=== PATIENT | male | born 1965 | race Caucasian/White ===

== ENCOUNTER 2016-06-03 08:03 | Day surgery (SDC) | payer OTHER ==
[~2016-06-03] VITALS: Ht 177.8 cm; Wt 83.9 kg
[~2016-06-03 08:03] MED LIST: ACID REDUCER 1150 MG PO; ASPIR 8181 M1 PO; ASPIR-LOW81 MG PO; GLUCOPHAGE500 MG PO; LAMICTAL150 M1 PO; LAMOTRIGINE100 MG PO; LEXAPRO10 MG PO; LISINOPRIL30 MG PO; RANITIDINE HCL150 MG PO; ZESTRIL30 MG PO
[2016-06-03 08:38] VITALS: BP 111/69
[2016-06-03 08:44] LABS: POINT-OF-CARE METER ID UU14174212
[2016-06-03 09:35] LABS: AMPHETAMINES QUANT VALUE 0 NG/ML; BARBITUATES QUANT VALUE 0 NG/ML; BENZODIAZEPINES QUANT VALUE 0 NG/ML; BENZODIAZEPINES, URINE SCREEN Negative (200 ng/mL); OPIATES QUANTITATIVE VALUE 0 NG/ML; PHENCYCLIDINE QUANT VALUE 0 NG/ML
== END 2016-06-03 10:43 | disposition home or self-care (01) ==
LOC: SDC 08:03
PROVIDERS: Surgery
PROC: 0YJ Anatomical Regions, Lower Extremities, Inspection (ICD-10-PCS; principal; 2016-06-03)
DX: K40.90 Unilateral inguinal hernia, without obstruction or gangrene, not specified as recurrent (principal); Z53.09 Procedure and treatment not carried out because of other contraindication; F14.10 Cocaine abuse, uncomplicated
CPT/HCPCS: 80306 90; 82948; J0690

== ENCOUNTER 2016-07-20 05:43 | Day surgery (SDC) | payer OTHER ==
[~2016-07-20] VITALS: Ht 177.8 cm; Wt 81.6 kg
[~2016-07-20 05:43] MED LIST changes: +LAMICTAL100 MG PO
[2016-07-20 06:34] VITALS: BP 111/67
[2016-07-20 06:37] LABS: POINT-OF-CARE METER ID UU14174212
[2016-07-20 07:52] LABS: AMPHETAMINES QUANT VALUE 0 NG/ML; BARBITUATES QUANT VALUE 0 NG/ML; BENZODIAZEPINES QUANT VALUE 0 NG/ML; BENZODIAZEPINES, URINE SCREEN Negative (200 ng/mL); OPIATES QUANTITATIVE VALUE 0 NG/ML; PHENCYCLIDINE QUANT VALUE 0 NG/ML
[2016-07-20] MEDS ORDERED: PERCOCET 5/31 TABLET PO (08:35)
[2016-07-20 08:50] LABS: POINT-OF-CARE METER ID UU13113675
[2016-07-20 09:45] VITALS: BP 128/79
[2016-07-20 10:45] VITALS: BP 122/76
== END 2016-07-20 10:58 | disposition home or self-care (01) ==
LOC: SDC 05:43
PROVIDERS: Surgery
PROC: 0YU60JZ Supplement Left Inguinal Region with Synthetic Substitute, Open Approach (ICD-10-PCS; principal; 2016-07-20)
DX: K40.90 Unilateral inguinal hernia, without obstruction or gangrene, not specified as recurrent (principal); I10 Essential (primary) hypertension; E11.9 Type 2 diabetes mellitus without complications; F17.210 Nicotine dependence, cigarettes, uncomplicated; Z79.84 Long term (current) use of oral hypoglycemic drugs; Z79.82 Long term (current) use of aspirin; Z79.899 Other long term (current) drug therapy; Z83.3 Family history of diabetes mellitus; Z82.49 Family history of ischemic heart disease and other diseases of the circulatory system; Z82.5 Family history of asthma and other chronic lower respiratory diseases
CPT/HCPCS: 80306 90; 82948; C1781; J0690; J3010

== ENCOUNTER 2016-09-28 21:12 | Emergency (ER) | payer OTHER ==
[~2016-09-28] VITALS: Ht 177.8 cm; Wt 77.1 kg
[~2016-09-28 21:12] MED LIST changes: +PERCOCET 5/31 TABLET PO
[2016-09-28] MEDS ORDERED: LISINOPRIL30 MG PO (21:30)
[2016-09-28] MEDS ORDERED: LAMOTRIGINE100 MG PO (21:31)
[2016-09-28] MEDS ORDERED: METFORMIN HCL500 MG PO (21:31)
[2016-09-28] MEDS ORDERED: PEPCID20 MG PO (22:33)
[2016-09-28] MEDS ORDERED: PREDNISONE20 MG PO (22:33)
[2016-09-28 23:51] VITALS: BP 122/84
== END 2016-09-28 23:51 | disposition home or self-care (01) ==
LOC: EME 21:12
DX: T63.441A Toxic effect of venom of bees, accidental (unintentional), initial encounter (principal); E11.9 Type 2 diabetes mellitus without complications; Z79.84 Long term (current) use of oral hypoglycemic drugs
CPT/HCPCS: 99281; 99284; J7512

== ENCOUNTER 2017-03-15 07:12 | Emergency (ER) | payer OTHER ==
[~2017-03-15] VITALS: Ht 177.8 cm; Wt 76.1 kg
[~2017-03-15 07:12] MED LIST changes: +METFORMIN HCL500 MG PO; +PEPCID20 MG PO; +PREDNISONE20 MG PO
[2017-03-15 09:32] LABS: HEMATOCRIT 41.9 % (38.0-50.0); HEMOGLOBIN 14.5 G/DL (12.5-16.6); MCH 33.3 PG (29.0-34.0); MCHC 34.6 G/DL (30.0-36.0); MCV 96.1 FL (86-99); PLATELET COUNT 303 K/uL (156-360); RBC DIS.WIDTH-CV 11.9 % (11.8-14.6); RBC DIS.WIDTH-SD 41.9 % (39-53); RED BLOOD COUNT 4.36 M/uL (4.00-5.50); WHITE BLOOD COUNT 17.3 K/uL (4.1-10.2)
[2017-03-15 09:48] LABS: ALBUMIN 3.7 g/dL (3.2-4.8); CHLORIDE 96 mEq/L (99-109); POTASSIUM 4.2 mEq/L (3.7-5.4); SODIUM 133 mEq/L (136-147)
[2017-03-15 09:50] LABS: GLUCOSE 199 mg/dL (70-99); TOTAL PROTEIN 7.5 g/dL (6.4-8.3)
[2017-03-15 09:52] LABS: TOTAL BILIRUBIN 0.3 mg/dL (0.0-1.0)
[2017-03-15 09:54] LABS: ALKALINE PHOSPHATASE 81 IU/L (3-129); CREATININE 1.9 mg/dL (0.6-1.3); GFR ESTIMATE (CALCULATED) 40 mL/min/ (58.99-99999)
[2017-03-15 09:55] LABS: UREA NITROGEN (BUN) 22 mg/dL (9-23)
[2017-03-15 09:56] LABS: AST (GOT) 20 IU/L (2-34)
[2017-03-15 09:57] LABS: ALT (GPT) 18 IU/L (3-49); LIPASE 10 U/L (1.0-51.0)
[2017-03-15] MEDS ORDERED: ZOFRAN ODT4 MG PO (10:05)
[2017-03-15] MEDS ORDERED: AUGMENTIN875 MG PO (10:05)
[2017-03-15 10:22] VITALS: BP 128/79
== END 2017-03-15 10:22 | disposition home or self-care (01) ==
LOC: EME 07:12
PROVIDERS: Physician Assistant
DX: J02.9 Acute pharyngitis, unspecified (principal); H10.9 Unspecified conjunctivitis; R11.2 Nausea with vomiting, unspecified; F17.200 Nicotine dependence, unspecified, uncomplicated; Z87.442 Personal history of urinary calculi
CPT/HCPCS: 80053; 83690; 85027; 99281; 99285; J0295; J1885; J2405; J7030; J7050

== ENCOUNTER 2017-06-24 18:19 | Emergency (ER) | payer OTHER ==
[~2017-06-24] VITALS: Ht 177.8 cm; Wt 80.0 kg
[~2017-06-24 18:19] MED LIST changes: +AUGMENTIN875 MG PO; +ZOFRAN ODT4 MG PO
[2017-06-24] MEDS ORDERED: MOTRIN800 MG PO (19:37)
[2017-06-24 19:54] VITALS: BP 153/90
== END 2017-06-24 19:55 | disposition home or self-care (01) ==
LOC: TRA 18:19 → EME 18:19 → TRA 19:55
DX: S93.409A Sprain of unspecified ligament of unspecified ankle, initial encounter (principal); W11.XXXA Fall on and from ladder, initial encounter; Y99.0 Civilian activity done for income or pay; I10 Essential (primary) hypertension; F31.9 Bipolar disorder, unspecified; F17.200 Nicotine dependence, unspecified, uncomplicated; Z79.84 Long term (current) use of oral hypoglycemic drugs; Z87.442 Personal history of urinary calculi
CPT/HCPCS: 71045; 73030; 73610; 99281; 99284